=== PATIENT | female | born 1960 | race Caucasian/White ===

== ENCOUNTER 2016-08-20 06:56 | Emergency (ER) | payer MEDICAID ==
[~2016-08-20] VITALS: Ht 170.2 cm; Wt 88.2 kg
[~2016-08-20 06:56] MED LIST: ALBU18HF INH; ALPR1TAB2 PO; CHOL200024 PO; DOCU-30 PO; ERYT1OIN5 LEFTEYE; ESOM40CA PO; ESTR1TAB15 PO; FLUC100T4 PO; FLUO20CA19 PO; FLUT16SP NS; GABA100C PO; HYDR-3144 PO; HYDR50CA PO; LACT1CAP35 PO; LEVO50TA5 PO; LEVO750T6 PO; LISI-167 PO; LORA10CA PO; METO25TA35 PO; MUPI22OI2 TP; OFLO5DRO7 LEFTEYE; PALI9TAB PO; POLY17PO5 PO; PROM25TA10 PO; PSEU120T44 PO; TIZA2CAP2 PO; TRAZ100T15 PO
[2016-08-20 06:59] VITALS: BP 131/74
[2016-08-20] MEDS ORDERED: OXYcodone/APAP 5/325MG TABLET ONE (08:41)
[2016-08-20] MEDS ORDERED: OXYcodone/APAP 5/325MG TABLET PO ONE (09:00)
[2016-08-20] MEDS ORDERED: HYDROmorphone 1 MG/ML, 1ML IM ONE (09:30)
[2016-08-20] MEDS ORDERED: ONDANSETRON ODT 4 MG PO ONE (09:30)
[2016-08-20] MEDS ORDERED: ONDANSETRON ODT 4 MG ONE (09:32)
[2016-08-20] MEDS ORDERED: HYDROmorphone 1 MG/ML, 1ML ONE (09:32)
== END 2016-08-20 10:20 | disposition home or self-care (01) ==
LOC: ED 10:14
DX: H66.002 Acute suppurative otitis media without spontaneous rupture of ear drum, left ear (principal); H60.502 Unspecified acute noninfective otitis externa, left ear; H60.332 Swimmer's ear, left ear; E66.9 Obesity, unspecified; J44.9 Chronic obstructive pulmonary disease, unspecified; I10 Essential (primary) hypertension; K21.9 Gastro-esophageal reflux disease without esophagitis
CPT/HCPCS: 96372; 99283; J1170; Q0162

== ENCOUNTER → 2016-09-13 | Outpatient (CLI) | payer MEDICAID | END | disposition home or self-care (01) | LOC: RAD 15:03 | PROVIDERS: ATTEND Nurse Practitioner | DX: R22.42 Localized swelling, mass and lump, left lower limb (principal) ==

== ENCOUNTER 2017-09-26 16:11 | Emergency (ER) | payer MEDICAID ==
[~2017-09-26] VITALS: Ht 172.7 cm; Wt 91.3 kg
[~2017-09-26 16:11] MED LIST changes: +DOCU-131 PO; -DOCU-30 PO; -HYDR-3144 PO; +HYDR-3245 PO; +PSEU120T10 PO; -PSEU120T44 PO
[2017-09-26 16:21] VITALS: BP 127/75
[2017-09-26 17:03] LABS: MICROSCOPIC AUTO
[2017-09-26 17:18] LABS: CULTURE INDICATED? YES
[2017-09-26 17:30] LABS: ALANINE AMINOTRANSFERASE 21 U/L (12-78); ANION GAP 8 mmol/L (5-15); CALCIUM 8.7 mg/dL (8.5-10.1); CHLORIDE 107 mmol/L (98-107); CREATININE 1.37 mg/dL (0.55-1.02)
[2017-09-26 17:32] LABS: ALKALINE PHOSPHATASE 22 U/L (45-117); BILIRUBIN,TOTAL 0.3 mg/dL (0.2-1.0); TOTAL PROTEIN 7.4 g/dL (6.4-8.2)
[2017-09-26] MEDS ORDERED: LEVOFLOXACIN 750 MG TABLET PO ONE (18:00)
[2017-09-26] MEDS ORDERED: LEVOFLOXACIN 750 MG TABLET ONE (18:05)
[2017-09-26 18:09] LABS: BASOPHILS # (AUTO) 0.02 x10^3/uL (0-0.1); BASOPHILS % (AUTO) 0 % (0-1); EOSINOPHILS # (AUTO) 0.14 x10^3/uL (0-0.4); EOSINOPHILS % (AUTO) 2 % (1-7); LYMPHOCYTES # (AUTO) 1.68 x10^3/uL (1-3.4); LYMPHOCYTES % (AUTO) 20 % (22-44); MD NO; MEAN CORPUSCULAR HGB CONC 33.1 g/dL (32.4-35.8); MEAN CORPUSCULAR VOLUME 87.5 fL (80-100); MEAN PLATELET VOLUME 8.1 fL (7.4-10.4); MONOCYTES # (AUTO) 0.59 x10^3/uL (0.2-0.8); MONOCYTES % (AUTO) 7 % (2-9); NEUTROPHILS # (AUTO) 5.86 x10^3/uL (1.8-6.8); NEUTROPHILS % (AUTO) 71 % (42-75); PLATELET COUNT 324 x10^3/uL (130-400); RED BLOOD COUNT 3.69 x10^6/uL (3.82-5.3); RED CELL DISTRIBUTION WIDTH 13.1 % (9.6-15.2)
== END 2017-09-26 18:24 | disposition home or self-care (01) ==
LOC: ED 18:18
DX: N30.90 Cystitis, unspecified without hematuria (principal); J44.9 Chronic obstructive pulmonary disease, unspecified; I10 Essential (primary) hypertension; K21.9 Gastro-esophageal reflux disease without esophagitis; Z90.710 Acquired absence of both cervix and uterus
CPT/HCPCS: 36415; 80053; 81001; 85025; 87077; 87086; 87186; 99284

== ENCOUNTER 2018-11-21 08:23 | Emergency (ER) | payer MEDICAID ==
[~2018-11-21] VITALS: Ht 170.2 cm; Wt 89.6 kg
[~2018-11-21 08:23] MED LIST changes: -FLUT16SP NS; +FLUT16SP24 NS; +TRAZ-137 PO; -TRAZ100T15 PO
[2018-11-21 08:25] VITALS: BP 158/99
--- NOTE | 2018-11-21 08:54 | NUR ---
PT TO ROOM FROM LOBBY
--- NOTE | 2018-11-21 08:57 | NUR ---
"MY EAR IS KILLING ME" LEFT EAR. reports hx of same- ENT suspects TMJ Denies fevers-no external swelling/discoloration noted. Drinking Gatorade w/out difficulty On being tx of UTI-Cipro. Reports sxs improving Blanchable, non-raised lesions to forearms noted-patient reports onset 3 weeks ago
--- NOTE | 2018-11-21 09:27 | NUR ---
lab at bedside
[2018-11-21 09:41] LABS: BASOPHILS # (AUTO) 0.03 x10^3/uL (0-0.1); BASOPHILS % (AUTO) 1 % (0-1); EOSINOPHILS # (AUTO) 0.06 x10^3/uL (0-0.4); EOSINOPHILS % (AUTO) 2 % (1-7); LYMPHOCYTES # (AUTO) 1.19 x10^3/uL (1-3.4); LYMPHOCYTES % (AUTO) 30 % (22-44); MD NO; MEAN CORPUSCULAR HEMOGLOBIN 30.6 pg (27.0-34.8); MEAN CORPUSCULAR HGB CONC 33.8 g/dL (32.4-35.8); MEAN CORPUSCULAR VOLUME 90.5 fL (80-100); MEAN PLATELET VOLUME 7.9 fL (7.4-10.4); MONOCYTES # (AUTO) 0.42 x10^3/uL (0.2-0.8); MONOCYTES % (AUTO) 10 % (2-9); NEUTROPHILS % (AUTO) 58 % (42-75); PLATELET COUNT 312 x10^3/uL (130-400); RED BLOOD COUNT 3.56 x10^6/uL (3.82-5.3); RED CELL DISTRIBUTION WIDTH 13.3 % (9.6-15.2)
[2018-11-21 09:42] LABS: HCT (SEDRATE) 32.3 % (34.6-47.8)
[2018-11-21 09:52] LABS: ALBUMIN 3.8 g/dL (3.4-5.0); ANION GAP 9 mmol/L (5-15); CALCIUM 8.8 mg/dL (8.5-10.1); CHLORIDE 111 mmol/L (98-107)
[2018-11-21 09:54] LABS: CREATININE 1.36 mg/dL (0.55-1.02)
[2018-11-21] MEDS ORDERED: DIPH,PERTUSS(ACELL),TET VAC/PF 0.5 ML IM-VACC ONE ×2 (10:30→11:08)
--- NOTE | 2018-11-21 10:38 | NUR ---
Patient continues to complain of 8/10 ear pain. Provider made aware. To defer pain medicine at this time. Patient provided with additional blanket/water Waiting on lab results-plan on dispo
[2018-11-21 10:44] LABS: FREE T4 (FREE THYROXINE) 1.22 ng/dL (0.76-1.46)
== END 2018-11-21 11:25 | disposition home or self-care (01) ==
LOC: ED 08:59
DX: H66.002 Acute suppurative otitis media without spontaneous rupture of ear drum, left ear (principal); H60.502 Unspecified acute noninfective otitis externa, left ear; J44.9 Chronic obstructive pulmonary disease, unspecified; K21.9 Gastro-esophageal reflux disease without esophagitis; I10 Essential (primary) hypertension; Z90.710 Acquired absence of both cervix and uterus
CPT/HCPCS: 36415; 80048; 82040; 84439; 84443; 85025; 85651; 99283

== ENCOUNTER 2019-05-26 12:45 | Observation (INO) | payer MEDICAID ==
[~2019-05-26] VITALS: Ht 170.2 cm; Wt 90.7 kg
[~2019-05-26 12:45] MED LIST changes: -TRAZ-137 PO; +TRAZ-175 PO
[2019-05-26] MEDS ORDERED: ASPIRIN 81 MG TABLET CHEW ONE (13:58)
[2019-05-26] MEDS ORDERED: NITROGLYCERIN SINGLE TAB 0.4 MG SL ONE (13:58)
[2019-05-26] MEDS ORDERED: ASPIRIN 81 MG TABLET CHEW PO ONE (14:00)
[2019-05-26] MEDS ORDERED: NITROGLYCERIN SINGLE TAB 0.4 MG SL PRN (14:00)
--- NOTE | 2019-05-26 14:06 | NUR ---
IV ESTABLISHED BY EMT ADV, BLOOD SENT TO LAB. PT MEDICATED PER JUN. XRAY AT BEDSIDE BUT UNABLE TO OBTAIN XRAY AT THIS TIME, WILL RETURN. PT ON MONITOR, CALL LIGHT WITHIN REACH.
[2019-05-26 14:11] LABS: BASOPHILS # (AUTO) 0.02 x10^3/uL (0-0.1); BASOPHILS % (AUTO) 0 % (0-1); EOSINOPHILS # (AUTO) 0.09 x10^3/uL (0-0.4); EOSINOPHILS % (AUTO) 1 % (1-7); LYMPHOCYTES # (AUTO) 1.18 x10^3/uL (1-3.4); LYMPHOCYTES % (AUTO) 17 % (22-44); MD NO; MEAN CORPUSCULAR HEMOGLOBIN 30.1 pg (27.0-34.8); MEAN CORPUSCULAR HGB CONC 33.6 g/dL (32.4-35.8); MEAN CORPUSCULAR VOLUME 89.6 fL (80-100); MONOCYTES # (AUTO) 0.44 x10^3/uL (0.2-0.8); MONOCYTES % (AUTO) 6 % (2-9); NEUTROPHILS # (AUTO) 5.11 x10^3/uL (1.8-6.8); NEUTROPHILS % (AUTO) 75 % (42-75); PLATELET COUNT 294 x10^3/uL (130-400); RED BLOOD COUNT 3.75 x10^6/uL (3.82-5.3); RED CELL DISTRIBUTION WIDTH 13.1 % (9.6-15.2)
[2019-05-26 14:16] LABS: INTERNATIONAL NORMALIZED RATIO 1.01 (0.93-1.1); PROTHROMBIN TIME 10.7 Seconds (9.6-11.5)
[2019-05-26 14:20] LABS: ALANINE AMINOTRANSFERASE 15 U/L (12-78); ALBUMIN 4.2 g/dL (3.4-5.0); ANION GAP 10 mmol/L (5-15); CALCIUM 8.8 mg/dL (8.5-10.1); CHLORIDE 107 mmol/L (98-107); CREATININE 1.48 mg/dL (0.55-1.02)
[2019-05-26 14:25] LABS: ALKALINE PHOSPHATASE 23 U/L (45-117); BILIRUBIN,TOTAL 0.4 mg/dL (0.2-1.0); TOTAL PROTEIN 7.9 g/dL (6.4-8.2); TROPONIN I < 0.015 ng/mL (0.000-0.045)
--- NOTE | 2019-05-26 15:22 | NUR ---
PT RESTING IN [facility] ON MONITOR, CALL LIGHT WITHIN REACH. AWAITNG BED ASSIGNMENT
[2019-05-26] MEDS ORDERED: ASPIRIN 325 MG TABLET EC PO ONE (16:00)
[2019-05-26] MEDS ORDERED: ENOXAPARIN 40 MG/0.4 ML SQ SCH (16:00)
[2019-05-26] MEDS ORDERED: BUDE10.2 IH (16:16)
[2019-05-26] MEDS ORDERED: IPRA0.2S35 INH (16:16)
[2019-05-26] MEDS ORDERED: DIAZ5TAB4 PO (16:16)
[2019-05-26] MEDS ORDERED: FENO160T PO (16:16)
[2019-05-26] MEDS ORDERED: ALBU90AE INH (16:16)
[2019-05-26] MEDS ORDERED: MONT10TA11 PO (16:16)
[2019-05-26] MEDS ORDERED: MIRA50TA PO (16:16)
[2019-05-26] MEDS ORDERED: ATOR-2 PO (16:16)
[2019-05-26] MEDS ORDERED: PANT40TA5 PO (16:16)
--- NOTE | 2019-05-26 17:17 | NUR ---
ATTEMPT TO CALL REPORT X1
[2019-05-26] MEDS ORDERED: ALBUTEROL SULFATE 2.5 MG/3 ML NPPB PRN (17:30)
--- NOTE | 2019-05-26 17:33 | NUR ---
report to Aung PALOMINO
[2019-05-26 18:11] VITALS: BP 140/90
[2019-05-26] MEDS: HEPARIN 5,000 UNITS/ML, 1ML SQ SCH (18:31)
[2019-05-26 19:19] VITALS: BP 126/81
[2019-05-26] MEDS ORDERED: OXYB-39 PO (20:38)
[2019-05-26] MEDS ORDERED: AZEL23SP NAS (20:38)
[2019-05-26] MEDS ORDERED: CYCL1DRO EACHEYE (20:38)
[2019-05-26] MEDS ORDERED: MELO7.5T31 PO (20:38)
[2019-05-26] MEDS ORDERED: PRAZ2CAP2 PO (20:38)
[2019-05-26] MEDS ORDERED: DICL100G29 TP (20:38)
[2019-05-26] MEDS: SODIUM CHLORIDE FLUSH 10ML SYR IVF SCH (22:35)
[2019-05-27 00:02] VITALS: BP 121/76
[2019-05-27] MEDS: HEPARIN 5,000 UNITS/ML, 1ML SQ SCH ×2 (05:48→16:18)
[2019-05-27] MEDS ORDERED: ASPIRIN 325 MG TABLET EC PO SCH (06:00)
[2019-05-27 07:45] VITALS: BP 143/90
[2019-05-27] MEDS: SODIUM CHLORIDE FLUSH 10ML SYR IVF SCH (07:45)
[2019-05-27] MEDS ORDERED: PRAZOSIN 2 MG CAPSULE PO PRN (08:30)
[2019-05-27] MEDS ORDERED: PHARMACY MAY ADJ FOR RENAL FX MC PRN (08:30)
[2019-05-27] MEDS ORDERED: ALBUTEROL SULFATE 2.5 MG/3 ML HHN PRN (08:30)
[2019-05-27] MEDS ORDERED: OXYBUTYNIN CHLORIDE 5 MG TABLET PO SCH (09:00)
[2019-05-27] MEDS ORDERED: MONTELUKAST 10 MG TABLET PO SCH (09:00)
[2019-05-27] MEDS ORDERED: FLUTICASONE NAS SCH (09:00)
[2019-05-27] MEDS ORDERED: FLUTICASONE NASAL SPRAY 16GM NAS SCH (09:00)
[2019-05-27] MEDS ORDERED: FENOFIBRATE 145 MG TABLET PO SCH (09:00)
[2019-05-27] MEDS ORDERED: PANTOPROZOLE 40MG TABLET PO SCH (09:00)
[2019-05-27] MEDS ORDERED: METOPROLOL TARTRATE 25 MG TAB PO SCH (09:00)
[2019-05-27] MEDS ORDERED: LEVOTHYROXINE 50 MCG TABLET PO SCH (09:00)
[2019-05-27] MEDS ORDERED: AZELASTINE NAS SCH (09:00)
[2019-05-27] MEDS ORDERED: PALIPERIDONE 9 MG HOMEMEDPO SCH (09:00)
[2019-05-27] MEDS ORDERED: CHOLECALCIFEROL 1,000 UNIT TABLET PO SCH (09:00)
[2019-05-27] MEDS ORDERED: HYDROXYZINE PAMOATE 50MG CAP PO SCH (09:00)
[2019-05-27] MEDS ORDERED: FLUOXETINE HCL 20 MG CAPSULE PO SCH (09:00)
[2019-05-27] MEDS: DIAZEPAM 5 MG TABLET PO SCH ×2 (09:23→16:46)
[2019-05-27] MEDS: TIZANIDINE 2MG TABLET PO SCH ×2 (09:26→16:46)
[2019-05-27] MEDS ORDERED: NICOTINE 14MG/24 HR PATCH.TD24 TD SCH (09:30)
[2019-05-27 09:33] LABS: TROPONIN I < 0.015 ng/mL (0.000-0.045)
[2019-05-27] MEDS ORDERED: DICLOFENAC SODIUM 2 GM HOMETP PRN (12:30)
[2019-05-27] MEDS ORDERED: REGADENOSON 0.4 MG/5 ML SYRINGE ONE (13:11)
[2019-05-27 14:05] VITALS: BP 115/75
[2019-05-27] MEDS ORDERED: DOCU-131 PO (16:44)
[2019-05-27] MEDS ORDERED: FERR-51 PO (16:44)
[2019-05-27] MEDS ORDERED: FERROUS SULFATE 325 MG TABLET PO SCH (17:00)
[2019-05-27] MEDS ORDERED: ATORVASTATIN 80 MG TABLET PO SCH (21:00)
[2019-05-27] MEDS ORDERED: TRAZODONE 150MG TABLET PO SCH (21:00)
== END 2019-05-27 18:27 | disposition home or self-care (01) ==
LOC: ED 14:16 → INTOOBSV 15:09 → EDIP 15:09 → 5SO 17:58
PROVIDERS: ADMIT Internal Medicine; ATTEND Internal Medicine
DX: R07.9 Chest pain, unspecified (principal); J44.9 Chronic obstructive pulmonary disease, unspecified; I12.9 Hypertensive chronic kidney disease with stage 1 through stage 4 chronic kidney disease, or unspecified chronic kidney disease; N18.9 Chronic kidney disease, unspecified; E03.9 Hypothyroidism, unspecified; E78.5 Hyperlipidemia, unspecified; F20.0 Paranoid schizophrenia; F31.9 Bipolar disorder, unspecified; F17.210 Nicotine dependence, cigarettes, uncomplicated; I20.0 Unstable angina; G89.29 Other chronic pain; Z79.899 Other long term (current) drug therapy
CPT/HCPCS: 36415; 71045; 78452; 78582; 80053; 83540; 83550; 83880; 84443; 84484; 85025; 85379; 85610; 85730; 93005; 93017; 93306; 96372; 99291; A9502; A9540; A9558; C9898; G0378; J1644; J2785